=== PATIENT | male | born 1935 | race Caucasian/White ===

== ENCOUNTER 2017-07-08 13:42 | Outpatient (CLI) | payer OTHER ==
[~2017-07-08 13:42] MED LIST: AVAPRO150 MG PO; DECADRON PO; FENOFIBRATE145 MG; GLUMETZA1000 MG PO; LEVSIN/SL0.125 MG SL; LYRICA50 MG; METFORMIN HCL1000 MG PO; NEURONTIN600 MG PO; NEURONTIN800 MG; PROTONIX40 MG PO; SARELTO PO; SIMVASTATIN20 MG PO; TOPROL XL25 M1; TOPROL XL50 MG; VALSARTAN320 MG
== END 2017-07-08 13:56 | disposition home or self-care (01) ==
LOC: RAD 501 13:42
DX: M54.5 Low back pain (principal); M25.561 Pain in right knee

== ENCOUNTER 2017-07-15 12:14 | Outpatient (CLI) | payer OTHER | END 2017-07-15 12:28 | disposition home or self-care (01) | LOC: NUCLEAR 12:14 | DX: M85.9 Disorder of bone density and structure, unspecified (principal); M81.0 Age-related osteoporosis without current pathological fracture ==

== ENCOUNTER 2017-07-24 08:13 | Outpatient (CLI) | payer OTHER | END 2017-07-24 08:27 | disposition home or self-care (01) | LOC: RAD 501 08:13 | DX: M54.5 Low back pain (principal); M25.561 Pain in right knee; M25.562 Pain in left knee; M25.551 Pain in right hip ==

== ENCOUNTER 2017-07-24 09:17 | Outpatient (CLI) | payer OTHER | END 2017-07-24 15:36 | disposition home or self-care (01) | LOC: MRI 09:17 | DX: M25.561 Pain in right knee (principal); M23.91 Unspecified internal derangement of right knee | CPT/HCPCS: 73721 ==

== ENCOUNTER → 2017-12-02 | Outpatient (CLI) | payer OTHER | END | disposition home or self-care (01) | LOC: MRI 12-01 07:15 | DX: M51.36 Other intervertebral disc degeneration, lumbar region (principal); M48.061 Spinal stenosis, lumbar region without neurogenic claudication | CPT/HCPCS: 72148 ==

== ENCOUNTER 2018-03-27 11:43 | Emergency (ER) | payer OTHER ==
[~2018-03-27] VITALS: Ht 175.3 cm; Wt 93.0 kg
[2018-03-27] MEDS ORDERED: XARELTO10 MG (12:39)
== END 2018-03-27 15:52 | disposition home or self-care (01) ==
LOC: ER 11:43
DX: R42 Dizziness and giddiness (principal); R31.9 Hematuria, unspecified

== ENCOUNTER 2018-07-04 06:54 | Emergency (ER) | payer OTHER ==
[~2018-07-04] VITALS: Ht 182.9 cm; Wt 96.6 kg
[~2018-07-04 06:54] MED LIST changes: +XARELTO10 MG
[2018-07-04] MEDS ORDERED: ULTRACET PO (07:32)
== END 2018-07-04 07:53 | disposition home or self-care (01) ==
LOC: ER 06:54
DX: M54.5 Low back pain (principal)

== ENCOUNTER 2018-07-13 12:40 | Outpatient (CLI) | payer OTHER ==
[~2018-07-13 12:40] MED LIST changes: +ULTRACET PO
== END 2018-07-13 17:00 | disposition home or self-care (01) ==
LOC: MRI 12:40
DX: M54.16 Radiculopathy, lumbar region (principal)
CPT/HCPCS: 72148

== ENCOUNTER 2018-07-18 13:57 | Emergency (ER) | payer OTHER ==
[~2018-07-18] VITALS: Ht 182.9 cm; Wt 95.3 kg
== END 2018-07-18 17:44 | disposition home or self-care (01) ==
LOC: ER 13:57
DX: M54.42 Lumbago with sciatica, left side (principal); E11.65 Type 2 diabetes mellitus with hyperglycemia

== ENCOUNTER 2018-07-22 09:49 | Inpatient (IN) | payer OTHER ==
[~2018-07-22] VITALS: Ht 182.9 cm; Wt 93.0 kg
--- NOTE | 2018-07-22 10:00 | NUR ---
PACIENTE ALERTA Y ORIENTADO POR JERONIMO ESFERAS QUIEN REFIERE HEMATURIA DESDE VIGNESH. REFIERE DOLOR EN ESPALDA BAJA QUE IRRADIA A PIERNA LT.
--- NOTE | 2018-07-22 11:11 | NUR ---
SE RECIBE PTE ALERTA Y ORIENTADO X3, MISS CIELO GAVIRIA ORIENTA A PTE SOBRE TX MEDICO. LE REALIZA LA EXTRACCION DE MUESTRAS CON EL USO DE MEDIDAS ASEPTICAS.
== END 2018-07-26 16:47 | disposition home or self-care (01) | DRG 392 ==
LOC: ER 09:49 → MEDJ 16:21 → MEDI 16:21 → MEDJ 07-23 14:50 → MEDI 07-23 15:45
PROVIDERS: ADMIT Internal Medicine
PROC: BW21ZZZ Computerized Tomography (CT Scan) of Abdomen and Pelvis (ICD-10-PCS; principal; 2018-07-22)
PROC: BW40ZZZ Ultrasonography of Abdomen (ICD-10-PCS; 2018-07-22)
PROC: 0T9B70Z Drainage of Bladder with Drainage Device, Via Natural or Artificial Opening (ICD-10-PCS; 2018-07-22)
DX: K57.32 Diverticulitis of large intestine without perforation or abscess without bleeding (principal); E11.40 Type 2 diabetes mellitus with diabetic neuropathy, unspecified; R31.0 Gross hematuria; Z79.4 Long term (current) use of insulin; K80.80 Other cholelithiasis without obstruction; E11.65 Type 2 diabetes mellitus with hyperglycemia

== ENCOUNTER 2018-07-27 03:11 | Inpatient (IN) | payer OTHER ==
[~2018-07-27] VITALS: Ht 180.3 cm; Wt 104.3 kg
== END 2018-08-04 09:50 | disposition expired | DRG 64 ==
LOC: ER 03:11 → ICU-2 08:45 → MEDI 08:45
PROVIDERS: ADMIT Internal Medicine
PROC: B020ZZZ Computerized Tomography (CT Scan) of Brain (ICD-10-PCS; principal; 2018-07-27)
PROC: 4A12X4Z Monitoring of Cardiac Electrical Activity, External Approach (ICD-10-PCS; 2018-07-27)
PROC: 4A033R1 Measurement of Arterial Saturation, Peripheral, Percutaneous Approach (ICD-10-PCS; 2018-07-27)
PROC: 3E0G76Z Introduction of Nutritional Substance into Upper GI, Via Natural or Artificial Opening (ICD-10-PCS; 2018-07-27)
PROC: 0T9B70Z Drainage of Bladder with Drainage Device, Via Natural or Artificial Opening (ICD-10-PCS; 2018-07-27)
PROC: 0DH67UZ Insertion of Feeding Device into Stomach, Via Natural or Artificial Opening (ICD-10-PCS; 2018-07-28)
PROC: B246ZZZ Ultrasonography of Right and Left Heart (ICD-10-PCS; 2018-07-28)
PROC: 5A09457 Assistance with Respiratory Ventilation, 24-96 Consecutive Hours, Continuous Positive Airway Pressure (ICD-10-PCS; 2018-07-28)
DX: I62.01 Nontraumatic acute subdural hemorrhage (principal); J96.00 Acute respiratory failure, unspecified whether with hypoxia or hypercapnia; N17.8 Other acute kidney failure; E87.0 Hyperosmolality and hypernatremia; E44.0 Moderate protein-calorie malnutrition; I61.1 Nontraumatic intracerebral hemorrhage in hemisphere, cortical; E11.40 Type 2 diabetes mellitus with diabetic neuropathy, unspecified; I16.0 Hypertensive urgency; I10 Essential (primary) hypertension; E11.65 Type 2 diabetes mellitus with hyperglycemia; Z79.4 Long term (current) use of insulin; Z66 Do not resuscitate